=== PATIENT | male | born 1930 | race Caucasian/White ===

== ENCOUNTER 2020-11-09 11:27 | Emergency (ER) | payer OTHER ==
--- OUTSIDE RECORDS SUMMARY | 2020-11-09 11:32 | XMS REPORT | Continuity of Care Document ---
:1930 Author Organization [facility] t Address [address] [place] [address] Care Team Providers Name Role Phone Unavailable Unavailable Unavailable Problems This patient has no known problems. Allergies, Adverse Reactions, Alerts This patient has no known allergies or adverse reactions. Medications This patient has no known medications. Procedures This patient has no known procedures. Results This patient has no known results.
--- NOTE | 2020-11-09 15:12 | RAD REPORT ---
EXAM DESCRIPTION: CT - Stone Protocol - 11/09/2020 2:56 pm CLINICAL HISTORY: Flank pain. FLANK PAIN COMPARISON: <Comparisons> TECHNIQUE: Axial images were obtained without oral or IV contrast. Lack of contrast limits solid org an and vascular assessment. The [id number] spans the entirety of the system partially obscuring uppermost abdomen and lung bases. Coronal reformatted images were obtained and reviewed. All CT scans are performed using dose optimization technique as appropriate and may include automated exposure control or mA/KV adjustment according to patient size. FINDINGS: Mild bronchiectasis is seen in the right lung base. Imaged portions of the liver and spleen show no suspicious findings on non-contrast imaging. The panc reas demonstrates atrophy. The adrenal glands are normal. No pathologic lymphadenopathy in the abdome n or pelvis. Punctate calculi are present in both kidneys without hydronephrosis. No bowel obstruction, free air, free fluid or abscess. Nonvisualized appendix. Colonic diverticulosis is present without diverticulitis. Aortoiliac atherosclerotic vascular calcification Tam catheter is present urinary bladder. There is high-density material within bladder is well as a small air bubble which may represent debris or blood clot. Moderate lumbar degenerative changes. Small bilateral fat containing inguinal hernias. IMPRESSION: Punctate calculi in both kidneys noted without hydronephrosis. Hyperdense material within the urinary bladder which is partially decompressed by means of a Tam ca theter. This may indicate debris or blood clot within the bladder.
[2020-11-09 15:47] LABS: Absolute Lymphocytes (CBC) 1.8 K/uL (0.7-4.9); Basophils % 0.8 % (0-1.3); Hematocrit 36.4 % (39.6-49.0); Lymphocytes % 19.8 % (15.3-44.8); MPV 8.9 fL (7.6-11.3); RBC Red Blood Cell Count 3.75 M/uL (4.33-5.43)
[2020-11-09 15:57] LABS: ALT/SGPT 23 U/L (12-78); AST/SGOT 23 U/L (15-37); Albumin 3.5 g/dL (3.4-5.0); Alkaline Phosphatase 74 U/L (45-117); BUN Blood Urea Nitrogen 26 mg/dL (7-18); Bicarbonate 26 mmol/L (21-32); Bilirubin Direct 0.2 mg/dL (0-0.2); Bilirubin Total 0.5 mg/dL (0.2-1.0); Glucose Level 152 mg/dL (74-106); Magnesium 1.7 mg/dL (1.8-2.4); NT PRO-BNP 497 pg/mL (<450); Potassium 4.6 mmol/L (3.5-5.1); Protein, Total 7.3 g/dL (6.4-8.2); Protime INR 1.45; Sodium Level 142 mmol/L (136-145); Troponin (Emerg Dept Use Only) < 0.02 ng/mL (0.0-0.045)
[2020-11-09] MEDS ORDERED: NA CHLORIDE 0.9% 1,000 ML ONE (16:07)
[2020-11-09] MEDS ORDERED: CEFTRIAXONE/SWI 1gm 1 GM/10 ML SYR ONE (16:07)
--- NOTE | 2020-11-09 16:15 | RAD REPORT ---
EXAM DESCRIPTION: RAD - Chest Single View - 11/09/2020 3:58 pm CLINICAL HISTORY: COUGH Chest pain. COMPARISON: No comparisons FINDINGS: Portable technique limits examination quality. The lungs are mildly emphysematous but grossly clear. The heart is normal in size. No displaced fract ures. IMPRESSION: Mild COPD.
[2020-11-09 16:56] LABS: Urine Appearance TURBID (Clear); Urine Blood 3+ (Negative); Urine Color Red (Yellow); Urine Glucose NEGATIVE (Negative); Urine Protein 2+ (Negative); Urine Urobilinogen 0.2 mg/dL (0.2-1.0); Urine pH 5.5 (5.0-7.0)
[2020-11-09 17:00] LABS: Urine Bilirubin NEGATIVE (Negative)
[2020-11-09 17:01] LABS: Urine Microscopic Reflex ORDER UMIC
[2020-11-09 17:14] LABS: Urine Amorphous Sediment 1+ /HPF (NONE SEEN); Urine Bacteria 20-50 /HPF (NONE SEEN); Urine Coarse Granular Casts 0-5 /LPF (NONE SEEN); Urine Mucus 4+ /HPF (NONE SEEN); Urine RBC TNTC /HPF (NONE SEEN)
--- NOTE | 2020-11-09 17:25 | ER ---
Nurse's Notes [facility] [place] [place] Name: Miguel Ramirez Age: 89 yrs Sex: Male : 1930 Arrival Date: 11/09/2020 Time: 11:31 Bed 19 Private MD: Diagnosis: Gross hematuria;Chronic atrial fibrillation-eliquis therapy Presentation: 11/09 12:28 Chief complaint: Patient states: Diagnosed with UTI at [facility] in [facility] Monday ll1 night. Still has Tam in that's draining bloody urine. Unable to get a urologist appointment. So he came in for eval and to get a urologist. Coronavirus screen: Vaccine status: Patient reports receiving the 2nd dose of the covid vaccine. Client denies travel out of the [place] in the last 14 days. At this time, the client does not indicate any symptoms associated with coronavirus-19. Ebola Screen: Patient denies travel to an Ebola-affected area in the 21 days before illness onset. Initial Sepsis Screen: Does the patient meet any 2 criteria? No. Patient's initial sepsis screen is negative. Does the patient have a suspected source of infection? Yes: Dysuria/Frequency/Urgency/UTI. Risk Assessment: Do you want to hurt yourself or someone else? Patient reports no desire to harm self or others. Onset of symptoms was November 05, 2020. 12:28 Method Of Arrival: Ambulatory ll1 12:28 Acuity: VIOLA 3 ll1 Historical: - Allergies: 12:32 PENICILLINS; ll1 12:32 Codeine; ll1 12:32 Clindamycin; ll1 - PMHx: 12:32 Diabetes mellitus; Hypertensive disorder; stroke; ll1 - PSHx: 12:32 A fib monitor; ll1 - Immunization history:: Client reports receiving the 2nd dose of the Covid vaccine. - Social history:: Smoking status: Patient denies any tobacco usage or history of. Screenin:32 Abuse screen: Denies threats or abuse. Denies injuries from another. Nutritional kg screening: No deficits noted. Tuberculosis screening: No symptoms or risk factors identified. Vital Signs: 12:28 BP 144 / 76; Pulse 77; Resp 16; Temp 98.1; Pulse Ox 98% ; Weight 87.09 kg; Height 6 ft. ll1 0 in. (182.88 cm); Pain 5/10; 12:28 Body Mass Index 26.04 (87.09 kg, 182.88 cm) ll1 ED Course: 11:31 Patient arrived in ED. ds1 12:28 Arm band placed on. ll1 12:32 Triage completed. ll1 14:41 Pool Sears MD is Attending Physician. kathleen 14:56 CT Stone Protocol In Process Unspecified. EDMS 15:10 Buster Moy is Primary Nurse. aj2 15:58 XRAY Chest (1 view) In Process Unspecified. EDMS 16:15 Urine Culture Sent. aj2 17:10 Tam cath removed intact, balloon deflated. kg 17:11 Tam cath inserted, using sterile technique, 20 Fr., by ED staff, balloon inflated, to kg gravity drainage. 17:26 Santiago Monzon MD is Referral Physician. [facility] 17:26 Andrea Bledsoe MD is Referral Physician. kathleen Administered Medications: 15:49 Drug: NS 0.9% 1000 ml Route: IV; Rate: 125 ml/hr; Site: right antecubital; aj2 15:54 Drug: Rocephin (cefTRIAXone) 1 grams Route: IV; Rate: per protocol; Site: right aj2 antecubital; 17:48 Drug: Magnesium Sulfate 1 grams Route: IVPB; Infused Over: 1 hrs; Site: right kg antecubital; Outcome: 17:24 Discharge ordered by . [facility] 19:16 Patient left the ED. ss Signatures: Dispatcher [employer] EDHI Pool Sears MD MD cha Sanford, Demi ds1 Lesli Wasserman RN RN Naila Gil RN RN 1 Angelina Lao RN RN kg Buster Moy aj2
--- NOTE | 2020-11-09 17:25 | EDPHYS ---
Physician Documentation [facility] Name: Miguel Ramirez Age: 89 yrs Sex: Male : 1930 Arrival Date: 11/09/2020 Time: 11:31 Bed 19 Private MD: LIVIA Physician Pool Sears HPI: 11/09 16:30 This 89 yrs old Male presents to ER via Ambulatory with complaints of Blood kathleen in Urine. 16:30 The patient presents with urinary symptoms, retention, hematuria. Onset: The kathleen symptoms/episode began/occurred 3 day(s) ago. Modifying factors: The symptoms are alleviated by remaining still. Associated signs and symptoms: The patient has no apparent associated signs or symptoms. Severity of symptoms: At their worst the symptoms were mild, in the emergency department the symptoms are unchanged. The patient has not experienced similar symptoms in the past. Historical: - Allergies: 12:32 PENICILLINS; ll1 12:32 Codeine; ll1 12:32 Clindamycin; ll1 - PMHx: 12:32 Diabetes mellitus; Hypertensive disorder; stroke; ll1 - PSHx: 12:32 A fib monitor; ll1 - Immunization history:: Client reports receiving the 2nd dose of the Covid vaccine. - Social history:: Smoking status: Patient denies any tobacco usage or history of. ROS: 16:33 Constitutional: Negative for fever, chills, and weight loss, Eyes: Negative for injury, kathleen pain, redness, and discharge, ENT: Negative for injury, pain, and discharge, Neck: Negative for injury, pain, and swelling, Cardiovascular: Negative for chest pain, palpitations, and edema, Respiratory: Negative for shortness of breath, cough, wheezing, and pleuritic chest pain, Abdomen/GI: Negative for abdominal pain, nausea, vomiting, diarrhea, and constipation, Back: Negative for injury and pain, MS/Extremity: Negative for injury and deformity, Skin: Negative for injury, rash, and discoloration, Neuro: Negative for headache, weakness, numbness, tingling, and seizure, Psych: Negative for depression, anxiety, suicide ideation, homicidal ideation, and hallucinations, Allergy/Immunology: Negative for hives, rash, and allergies, Endocrine: Negative for neck swelling, polydipsia, polyuria, polyphagia, and marked weight changes, Hematologic/Lymphatic: Negative for swollen nodes, abnormal bleeding, and unusual bruising. 16:33 : Positive for hematuria. Exam: 16:33 Constitutional: This is a well developed, well nourished patient who is awake, alert, kathleen and in no acute distress. Head/Face: Normocephalic, atraumatic. Eyes: Pupils equal round and reactive to light, extra-ocular motions intact. Lids and lashes normal. Conjunctiva and sclera are non-icteric and not injected. Cornea within normal limits. Periorbital areas with no swelling, redness, or edema. ENT: Nares patent. No nasal discharge, no septal abnormalities noted. Tympanic membranes are normal and external auditory canals are clear. Oropharynx with no redness, swelling, or masses, exudates, or evidence of obstruction, uvula midline. Mucous membranes moist. Neck: Trachea midline, no thyromegaly or masses palpated, and no cervical lymphadenopathy. Supple, full range of motion without nuchal rigidity, or vertebral point tenderness. No Meningismus. Chest/axilla: Normal chest wall appearance and motion. Nontender with no deformity. No lesions are appreciated. Cardiovascular: Regular rate and rhythm with a normal S1 and S2. No gallops, murmurs, or rubs. Normal PMI, no JVD. No pulse deficits. Respiratory: Lungs have equal breath sounds bilaterally, clear to auscultation and percussion. No rales, rhonchi or wheezes noted. No increased work of breathing, no retractions or nasal flaring. Back: No spinal tenderness. No costovertebral tenderness. Full range of motion. Skin: Warm, dry with normal turgor. Normal color with no rashes, no lesions, and no evidence of cellulitis. MS/ Extremity: Pulses equal, no cyanosis. Neurovascular intact. Full, normal range of motion. Neuro: Awake and alert, GCS 15, oriented to person, place, time, and situation. Cranial nerves II-XII grossly intact. Motor strength 5/5 in all extremities. Sensory grossly intact. Cerebellar exam normal. Normal gait. Psych: Awake, alert, with orientation to person, place and time. Behavior, mood, and affect are within normal limits. 16:33 Abdomen/GI: Inspection: distension, Bowel sounds: normal, Palpation: nontender, Liver: no appreciated palpable abnormalities, Hernia: not appreciated. 16:33 : Male external genitalia: normal, Bladder: is normal, Sexual behavior: the patient is not sexually active. Vital Signs: 12:28 BP 144 / 76; Pulse 77; Resp 16; Temp 98.1; Pulse Ox 98% ; Weight 87.09 kg; Height 6 ft. ll1 0 in. (182.88 cm); Pain 5/10; 12:28 Body Mass Index 26.04 (87.09 kg, 182.88 cm) ll1 MDM: 14:41 Patient medically screened. [facility] 11/09 14:44 Order name: Basic Metabolic Panel [facility] 11/09 14:44 Order name: CBC with Diff [facility] 11/09 14:44 Order name: LFT's [facility] 11/09 14:44 Order name: Magnesium [facility] 11/09 14:44 Order name: NT PRO-BNP [facility] 11/09 14:44 Order name: PT-INR; Complete Time: 16:23 [facility] 11/09 14:44 Order name: Troponin (emerg Dept Use Only); Complete Time: 16:23 [facility] 11/09 14:44 Order name: Urine Culture [facility] 11/09 14:44 Order name: Type And Screen; Complete Time: 17:23 [facility] 11/09 14:45 Order name: Basic Metabolic Panel; Complete Time: 16:23 [facility] 11/09 14:45 Order name: CBC with Automated Diff; Complete Time: 16:23 [facility] 11/09 14:45 Order name: Liver (Hepatic) Function; Complete Time: 16:23 [facility] 11/09 14:45 Order name: Magnesium; Complete Time: 16:23 [facility] 11/09 14:45 Order name: NT PRO-BNP; Complete Time: 16:23 [facility] 11/09 14:44 Order name: XRAY Chest (1 view); Complete Time: 16:23 [facility] 11/09 14:44 Order name: Cardiac monitoring [facility] 11/09 14:44 Order name: EKG - Nurse/Tech [facility] 11/09 14:44 Order name: IV Saline Lock [facility] 11/09 14:44 Order name: Labs collected and sent [facility] 11/09 14:44 Order name: O2 Per Protocol; Complete Time: 15:57 [facility] 11/09 14:44 Order name: O2 Sat Monitoring; Complete Time: 15:57 [facility] 11/09 14:44 Order name: CT Stone Protocol; Complete Time: 16:23 [facility] 11/09 16:26 Order name: Urinalysis 11/09 16:27 Order name: Urinalysis; Complete Time: 17:23 [facility] 11/09 17:01 Order name: ABO/RH no charge; Complete Time: 17:23 EDND 11/09 17:01 Order name: Urine Microscopic Only; Complete Time: 17:23 EDND 11/09 14:44 Order name: Urine Dipstick-Ancillary (obtain specimen); Complete Time: 16:14 [facility] 11/09 16:41 Order name: Misc. Order: irrigate noguera kathleen Administered Medications: 15:49 Drug: NS 0.9% 1000 ml Route: IV; Rate: 125 ml/hr; Site: right antecubital; aj2 15:54 Drug: Rocephin (cefTRIAXone) 1 grams Route: IV; Rate: per protocol; Site: right aj2 antecubital; 17:48 Drug: Magnesium Sulfate 1 grams Route: IVPB; Infused Over: 1 hrs; Site: right kg antecubital; Disposition Summary: 11/09/20 17:24 Discharge Ordered Location: Home kathleen Problem: new kathleen Symptoms: have improved kathleen Condition: Stable kathleen Diagnosis - Gross hematuria kathleen - Chronic atrial fibrillation - eliquis therapy kathleen Followup: kathleen - With: Private Physician - When: 2 - 3 days - Reason: Recheck today's complaints, Continuance of care, Re-evaluation by your physician Followup: kathleen - With: Santiago Monzon MD - When: 2 - 3 days - Reason: Recheck today's complaints, Continuance of care, Re-evaluation by your physician Followup: kathleen - With: Andrea Bledsoe MD - When: 2 - 3 days - Reason: Recheck today's complaints, Continuance of care, Re-evaluation by your physician Discharge Instructions: - Discharge Summary Sheet kathleen - Atrial Fibrillation kathleen - Indwelling Urinary Catheter Care, Adult kathleen - Hematuria, Adult kathleen - Acute Urinary Retention, Male kathleen - Urinary Tract Infection, Adult kathleen - Urinary Tract Infection, Adult, Y[place]h-oh-Thok kathleen - Atrial Fibrillation, Nuln-fw-Pset kathleen - Indwelling Urinary Catheter Care, Adult, Ugkr-le-Sgdl kathleen Forms: - Medication Reconciliation Form kathleen - Thank You Letter kathleen - Antibiotic Education kathleen - Prescription Opioid Use kathleen Prescriptions: - tamsulosin 0.4 mg Oral capsule - take 1 capsule by ORAL route once daily 1/2 hour following the same meal each [facility] day; 30 capsule; Refills: 0, Product Selection Permitted - Bactrim DS 800-160 mg Oral Tablet - take 1 tablet by ORAL route every 12 hours for 7 days; 14 tablet; Refills: 0, [facility] Product Selection Permitted Signatures: Dispatcher [employer] Pool Serrano MD MD cha Lewis, Lynsay, RN RN ll1 Angelina Lao RN RN Buster Moy
[2020-11-09] MEDS ORDERED: MAGNESIUM SULFATE 1 gm IVPB 1 GM/100 ML BAG IV ONE (17:59)
[2020-11-09 19:22] VITALS: BP 144/76; TEMP 98.1; O2SAT 98
== END 2020-11-09 19:16 | disposition home or self-care (01) ==
LOC: ER 11:27
DX: R31.0 Gross hematuria (principal); I48.20 Chronic atrial fibrillation, unspecified; I10 Essential (primary) hypertension; Z79.01 Long term (current) use of anticoagulants; Z88.0 Allergy status to penicillin; Z88.1 Allergy status to other antibiotic agents; Z88.5 Allergy status to narcotic agent
CPT/HCPCS: 87088; 85025; 87086; 80048; 36415; 86900; 83735; 86850; 85610; 86901; 80076; 84484; 83880; 76377; 74176; 71045; 51702; 96375; 96374; 99284; J3475; J0696; J7030; 81003; 81015

== ENCOUNTER 2020-11-10 04:45 | Emergency (ER) | payer OTHER ==
--- OUTSIDE RECORDS SUMMARY | 2020-11-10 04:47 | XMS REPORT | Continuity of Care Document ---
:1930 Author Organization [facility] t Address [address] [place] [address] Care Team Providers Name Role Phone Unavailable Unavailable Unavailable Problems This patient has no known problems. Allergies, Adverse Reactions, Alerts This patient has no known allergies or adverse reactions. Medications This patient has no known medications. Procedures This patient has no known procedures. Results This patient has no known results.
--- NOTE | 2020-11-10 06:32 | ER ---
Nurse's Notes [facility] Name: Miguel Ramirez Age: 89 yrs Sex: Male : 1930 Arrival Date: 11/10/2020 Time: 04:46 Bed 5 Private MD: Diagnosis: Noguera catheter clogged up Presentation: 11/10 04:58 Chief complaint: Patient states: Reports he had output today at around midnight, states ea his cath has nothing in it now and he feels distended. Reports the catheter was changed yesterday. Coronavirus screen: At this time, the client does not indicate any symptoms associated with coronavirus-19. Ebola Screen: No symptoms or risks identified at this time. Initial Sepsis Screen: Does the patient meet any 2 criteria? No. Patient's initial sepsis screen is negative. Does the patient have a suspected source of infection? No. Patient's initial sepsis screen is negative. Risk Assessment: Do you want to hurt yourself or someone else? Patient reports no desire to harm self or others. Onset of symptoms was November 10, 2020. 04:58 Method Of Arrival: Ambulatory ea 04:58 Acuity: VIOLA 3 ea Triage Assessment: 05:00 General: Appears uncomfortable, Behavior is appropriate for age. Pain: Complains of ea pain in suprapubic area. Neuro: Level of Consciousness is awake, alert, obeys commands, Oriented to person, place, time. : Noguera in place to gravity drainage. Historical: - Allergies: 05:00 Clindamycin; ea 05:00 Codeine; ea 05:00 PENICILLINS; ea - PMHx: 05:00 diabetes mellitus; Hypertensive disorder; stroke; ea - PSHx: 05:00 A fib monitor; ea - Immunization history:: Adult Immunizations up to date. - Social history:: Smoking status: unknown. Screenin:57 Abuse screen: Denies threats or abuse. Nutritional screening: No deficits noted. ea Tuberculosis screening: No symptoms or risk factors identified. Fall Risk None identified. Assessment: 05:10 : Noguera in place to gravity drainage Leg bag intact to noguera cath with hematuria cc4 noted; reports obstruction of catheter with c/o suprapubic pain; Dr. Tavarez in to see with order rec'd to irrigate noguera cath.; noguera irrigated with 1500ml sterile saline until clear with several clots aspirated; reports relief of pain upon aspiration of 400ml urine; \T\ bedside. 07:10 Reassessment: Patient appears in no apparent distress at this time. Patient denies pain cc4 at this time. Patient states feeling better. Patient states symptoms have improved. Noguera catheter draining light dickinson urine with slight pink tinge to dependent leg bag; discharge instructions given to pt/; reports feeling better; denies any c/o discomfort; VSS; discharged to private vehicle via w/c.. Vital Signs: 04:58 BP 148 / 70; Pulse 105; Resp 20; Temp 98; Pulse Ox 97% ; Weight 87.09 kg; Height 6 ft. ea (182.88 cm); 07:05 BP 144 / 61; Pulse 87; Resp 20; Temp 98.0(O); cc4 04:58 Body Mass Index 26.04 (87.09 kg, 182.88 cm) ED Course: 04:46 Patient arrived in ED. 04:58 Patient has correct armband on for positive identification. Bed in low position. Call ea light in reach. Side rails up X2. 04:59 Triage completed. ea 04:59 Arm band placed on right wrist. Patient placed in an exam room, on a stretcher, on ea pulse oximetry. 05:11 Tonio Tavarez MD is Attending Physician. pkl 06:30 Santiago Monzon MD is Referral Physician. pkl 07:22 Mey Velasco is Primary Nurse. cc4 Administered Medications: No medications were administered Outcome: 06:31 Discharge ordered by . pkl 07:38 Patient left the ED. cc4 Signatures: Tonio Tavarez MD MD pkAdriana Alvarez, RN RN Jodi Darling Christie cc4
--- NOTE | 2020-11-10 06:32 | EDPHYS ---
Physician Documentation [facility] Name: Miguel Ramirez Age: 89 yrs Sex: Male : 1930 Arrival Date: 11/10/2020 Time: 04:46 Bed 5 Private MD: ED Physician Tonio Tavarez HPI: 11/10 05:33 This 89 yrs old Male presents to ER via Ambulatory with complaints of Problem pkl With Urinary Catheter. 05:33 The patient presents with a Noguera catheter problem, is not draining. Onset: The pkl symptoms/episode began/occurred just prior to arrival, 3 hour(s) ago. Associated signs and symptoms: Pertinent positives: bladder distended. Patient had Noguera catheter put in yesterday. Historical: - Allergies: 05:00 Clindamycin; ea 05:00 Codeine; ea 05:00 PENICILLINS; ea - PMHx: 05:00 diabetes mellitus; Hypertensive disorder; stroke; ea - PSHx: 05:00 A fib monitor; ea - Immunization history:: Adult Immunizations up to date. - Social history:: Smoking status: unknown. ROS: 05:33 Eyes: Negative for injury, pain, redness, and discharge, ENT: Negative for injury, pkl pain, and discharge, Neck: Negative for injury, pain, and swelling, Cardiovascular: Negative for chest pain, palpitations, and edema, Respiratory: Negative for shortness of breath, cough, wheezing, and pleuritic chest pain, Abdomen/GI: Negative for abdominal pain, nausea, vomiting, diarrhea, and constipation, Back: Negative for injury and pain. 05:33 : Positive for urinary symptoms, hematuria, Noguera catheter not drainung. Exam: 05:33 Head/Face: Normocephalic, atraumatic. Eyes: Pupils equal round and reactive to light, pkl extra-ocular motions intact. Lids and lashes normal. Conjunctiva and sclera are non-icteric and not injected. Cornea within normal limits. Periorbital areas with no swelling, redness, or edema. ENT: Nares patent. No nasal discharge, no septal abnormalities noted. Tympanic membranes are normal and external auditory canals are clear. Oropharynx with no redness, swelling, or masses, exudates, or evidence of obstruction, uvula midline. Mucous membranes moist. Neck: Trachea midline, no thyromegaly or masses palpated, and no cervical lymphadenopathy. Supple, full range of motion without nuchal rigidity, or vertebral point tenderness. No Meningismus. Chest/axilla: Normal chest wall appearance and motion. Nontender with no deformity. No lesions are appreciated. Cardiovascular: Regular rate and rhythm with a normal S1 and S2. No gallops, murmurs, or rubs. Normal PMI, no JVD. No pulse deficits. Respiratory: Lungs have equal breath sounds bilaterally, clear to auscultation and percussion. No rales, rhonchi or wheezes noted. No increased work of breathing, no retractions or nasal flaring. Abdomen/GI: Soft, non-tender, with normal bowel sounds. No distension or tympany. No guarding or rebound. No evidence of tenderness throughout. Back: No spinal tenderness. No costovertebral tenderness. Full range of motion. 05:33 : Bladder: distension, that is mild, a noguera is noted, not draining. 05:33 Musculoskeletal/extremity: Exam is negative for acute changes. 05:33 Skin: Exam negative for rash. 05:33 Neuro: Orientation: is normal, Mentation: is normal, Cranial nerves: grossly normal, Motor: is normal. Vital Signs: 04:58 BP 148 / 70; Pulse 105; Resp 20; Temp 98; Pulse Ox 97% ; Weight 87.09 kg; Height 6 ft. ea (182.88 cm); 07:05 BP 144 / 61; Pulse 87; Resp 20; Temp 98.0(O); cc4 04:58 Body Mass Index 26.04 (87.09 kg, 182.88 cm) ea Procedures: 06:32 Irrigate Noguera catheter. pkl MDM: 05:11 Patient medically screened. pkl 06:28 Data reviewed: vital signs, nurses notes. ED course: Patient feeling better. To follow pkl up with Dr. Monzon ( Urology ) Return if necessary. Patient understood instructions. Administered Medications: No medications were administered Disposition Summary: 11/10/20 06:31 Discharge Ordered Location: Home pkl Problem: new pkl Symptoms: have improved pkl Condition: Stable pkl Diagnosis - Noguera catheter clogged up pkl Followup: pkl - With: Santiago Monzon MD - When: 1 - 2 days - Reason: Re-evaluation by your physician Forms: - Medication Reconciliation Form pkl - Thank You Letter pkl - Antibiotic Education pkl - Prescription Opioid Use pkl Signatures: Tonio Tavarez MD MD pkl Adriana Lakhani, RN RN rj
== END 2020-11-10 07:38 | disposition home or self-care (01) ==
LOC: ER 04:45
DX: T83.098A Other mechanical complication of other urinary catheter, initial encounter (principal); I10 Essential (primary) hypertension; E11.9 Type 2 diabetes mellitus without complications; Z88.0 Allergy status to penicillin; Z88.3 Allergy status to other anti-infective agents; Z88.5 Allergy status to narcotic agent
CPT/HCPCS: 99283